=== PATIENT | female | born 1985 | race Caucasian/White ===

== ENCOUNTER 2023-09-23 15:18 | Emergency (ER) | payer OTHER, SELFPAY ==
[2023-09-23] VITALS (7 sets, daily range): BP systolic 109–158; BP diastolic 73–104
[2023-09-23 15:45] LABS: Urine Albumin 1+ (Neg - Trace); Urine Bilirubin 1+ (Negative); Urine Character Clear (Clear); Urine Color Yellow; Urine Glucose Negative (Negative); Urine Ketone 3+ (Negative); Urine Leukocyte Trace (Negative); Urine Nitrite Negative (Negative); Urine Occult Blood 2+ (Negative); Urine Specific Gravity 1.025 (<1.030); Urine Urobilinogen 1+ (Neg - 1+)
[2023-09-23 15:47] LABS: % Basophils 0.4 % (0-2); % Immature Granulocytes 0.4 % (0-0.5); % Lymphocytes 7.1 % (20.5-51.1); % Monocytes 8.3 % (1.7-9.3); % Neutrophils 83.8 % (42.2-75.2); Absolute Lymphocytes 0.5 10^3/uL (1.2-3.4); Absolute Monocytes 0.6 10^3/uL (0.1-0.6); Absolute Neutrophils 6.3 10^3/uL (1.4-6.5); Hematocrit 41.1 % (37.0-47.0); Hemoglobin 14.5 g/dL (12.0-16.0); Mean Corp Hgb Conc. 35.3 g/dL (33.0-37.0); Mean Corpuscular Hgb 32.8 pg (27.0-31.0); Mean Platelet Volume 9.9 fL (7.4-10.4); Nucleated Red Blood Cells % 0 %; Platelet Count 159 10^3/uL (130-400); Red Blood Cell Count 4.42 10^6/uL (4.20-5.40); Red Cell Dist. Width 12.8 % (11.5-14.5); White Blood Cell Count 7.5 10^3/uL (4.8-10.8)
[2023-09-23 15:54] LABS: Urine Bacteria Few (Negative); Urine Hyaline Cast 0-2 /LPF (0-2); Urine Red Blood Cell 0-2 /HPF (0-2)
[2023-09-23 15:57] LABS: Amphetamines Negative (Negative); Barbiturates Negative (Negative); Benzodiazepines Negative (Negative); Buprenorphine Negative (Negative); Cocaine Negative (Negative); Marijuana Negative (Negative); Methadone Negative (Negative); Methamphetamines Negative (Negative); Opiates Negative (Negative); Phencyclidine Negative (Negative); Tricyclic Antidepressants Negative (Negative)
[2023-09-23 16:22] LABS: ALT (SGPT) 124 U/L (0-35); AST (SGOT) 257 U/L (14-36); Albumin 5.7 g/dl (3.5-5.0); Alkaline Phosphatase 116 U/L (38-126); Blood Urea Nitrogen 8 mg/dl (7-17); Calcium 10.6 mg/dl (8.4-10.2); Carbon Dioxide 21 mmol/L (22-30); Chloride 92 mmol/L (98-107); Glucose 161 mg/dl (70-99); Lipase 275 U/L (23-300); Potassium 4.3 mmol/L (3.5-5.1); Sodium 136 mmol/L (135-145); Total Bilirubin 2.3 mg/dl (0.2-1.3); Total Protein 8.2 g/dl (6.3-8.2); eGFR > 60.00
[2023-09-23 16:26] LABS: Alcohol None Detected
--- NOTE | 2023-09-23 17:06 | ED.GENMED ---
History of Present Illness
General
Chief Complaint: Withdrawal Symptoms
Source: patient
Exam Limitations: none
Time Seen by Provider: 09/23/23 16:41
Nursing documentation reviewed up to this point in time: agreed with
History of Present Illness
History of Present Illness:
37 yr old female presents to the ED for evaluation. Pt reports she is an alcoholic and has drank for about 15 yrs heavier for the past 5-7 yrs. she reports she drinks both day and night. Her last drink was 8 PM last night however she woke up
vomiting around 3�4 AM. She did try to drink a beer around 9 AM but vomited that up and since then has vomited about 15 times. She does feel shaky and nauseous. She did see her family doctor 7 here for evaluation of withdrawal. She has never had
a withdrawal seizure. She has had the shakes in the past but never this bad. The most she stopped drinking in the past was for 1 day.
She does have a history of elevated LFTs and fatty liver.
Review of Systems
Review of Systems
Allergies reviewed?: Yes
All Other Systems: ROS reviewed and negative except as documented in HPI and ROS
Constitutional: Reports no symptoms; Denies fever, fatigue or chills
EENT: Reports no symptoms
Respiratory: Reports no symptoms
Cardiac: Reports no symptoms
ABD/GI: Reports nausea and vomiting; Denies abdominal pain
: Reports no symptoms
Musculoskeletal: Reports no symptoms
Skin: Reports no symptoms
Neurological: Reports other (shakes feels mildly tremulous )
Psychiatric: Denies suicidal
Phy Exam
General Physical Exam
General Presentation: no apparent distress
General age: appears stated age
General Skin: warm and dry
General Habitus: normal
General Mental: alert
General Hydration: dry mucous membranes
Cardiovascular Exam
Cardiovascular Exam: tachycardia
Pulmonary Exam
Pulmonary Exam: lungs clear and no respiratory distress
Gastrointestinal Exam
Gastrointestinal Exam: non tender and soft
Neurological Exam
Neurological Exam: alert and oriented x3
Musculoskeletal Exam
Musculoskeletal Exam: full ROM
Skin Exam
Skin Exam: normal color and warm/dry
Psychiatric Exam
Psychiatric Exam: normal mood/affect
Scores
Withdrawal Assessment of Alcohol
Withdrawal Assessment Completed?: Yes
Nausea and Vomiting: Mild nausea with no vomiting
Tactile Disturbances: None
Tremor: Moderate, with patient's arms extended
Auditory Disturbances: Not present
Paroxysmal Sweats: No sweat visible
Visual Disturbances: Not present
Anxiety: No anxiety, at ease
Headache, Fullness in Head: Not present
Agitation: Normal activity
Orientation and clouding of sensorium: Oriented and can do serial additions
Total CIWA Score: 5
Alcohol Withdrawal Medication Recommendation: Equal to MSAS Score 0-4. Monitor & re-assess q2hrs, NO MEDICATION NEEDED
Course
Orders/Labs/Results
Orders:
Orders
09/23/23 15:26
Electrocardiogram (*1) Urgent
Reason for Study: Chest Pain
EKG- Treatment ONCE
09/23/23 15:38
Alcohol Urgent
Complete Blood Count/With Diff Urgent
Comprehensive Metabolic Panel Urgent
Lipase Urgent
Magnesium Urgent
Comment: ADD ON
Urinalysis Reflex To Culture Urgent
Date Specimen was Collected: 09/23/23
Time Specimen was Collected: 15:28
Urine Drug Abuse Screen Urgent
Date Specimen was Collected: 09/23/23
Time Specimen was Collected: 15:28
Urine Microscopic Reflex Cult Urgent
09/23/23 17:04
0.9% Sodium Chloride 1000 ml [Nss] 1,000 ml IV BOLUS
09/23/23 17:05
Lorazepam [Ativan] 1 mg IV NOW STA
09/23/23 17:06
Ondansetron Injectable [Zofran] 4 mg IV NOW STA
09/23/23 17:07
Famotidine [Pepcid] 20 mg IV NOW STA
09/23/23 19:45
Electrocardiogram (*1) Urgent
Reason for Study: Chest Pain
EKG- Treatment ONCE
09/23/23 19:50
Troponin I Urgent
09/23/23 19:51
0.9% Sodium Chloride 1000 ml [Nss] 1,000 ml IV BOLUS
09/23/23 20:02
Lorazepam [Ativan] 0.5 mg IV NOW STA
09/23/23 20:08
Add On- LAB Urgent
Tests Added?: magnesium
09/23/23 21:18
Mag Hydrox/Al Hydrox/Simeth [Maalox] 30 ml Phenobarb/Hyoscy/Atropine/Scop [] 10 ml PO NOW
09/23/23 21:26
Mag Hydrox/Al Hydrox/Simeth [Maalox] 30 ml .ROUTE .STK-MED ONE
Phenobarb/Hyoscy/Atropine/Scop [] 10 ml .ROUTE .STK-MED ONE
Abnormal Lab Results
09/23/23
15:38
MCH 32.8 H pg
(27.0-31.0)
Absolute Lymphs (auto) 0.5 L 10^3/uL
(1.2-3.4)
Neutrophils % 83.8 H %
(42.2-75.2)
Lymphocytes % 7.1 L %
(20.5-51.1)
Chloride 92 L mmol/L
(98-107)
Carbon Dioxide 21 L mmol/L
(22-30)
Glucose 161 H mg/dl
(70-99)
Calcium 10.6 H mg/dl
(8.4-10.2)
Total Bilirubin 2.3 H mg/dl
(0.2-1.3)
AST 257 H U/L
(14-36)
ALT 124 H U/L
(0-35)
Albumin 5.7 H g/dl
(3.5-5.0)
Urine Ketones 3+ A
(Negative)
Ur Occult Blood Reflex 2+ A
(Negative)
Urine Bilirubin 1+ A
(Negative)
Leukocyte Esterase Rfl Trace A
(Negative)
Urine Bacteria (Reflex) Few A
(Negative)
Urine Albumin (Reflex) 1+ A
(Neg - Trace)
09/23/23 15:38
09/23/23 15:38
Vital Signs
Initial and Last Documented VS:
Initial Vital Signs
Temp Pulse Resp BP Pulse Ox
98.1 F 107 20 158/104 95
09/23/23 15:21 09/23/23 15:21 09/23/23 15:21 09/23/23 15:21 09/23/23 15:21
Last Documented Vital Signs
Temp Pulse Resp BP Pulse Ox
98.1 F 84 21 122/81 94
09/23/23 15:21 09/23/23 22:15 09/23/23 22:15 09/23/23 22:04 09/23/23 21:00
Smoking Pipe Maker consulted with Physician
Smoking Pipe Maker consulted with physician?: Yes
Name of Physician Consulted: Chelo
MDM/Problems Addressed
Differential Diagnosis Includes:
Not limited to alcohol withdrawal, dehydration
MDM/Problems Addressed:
Patient is a 37-year-old female who admits to being an alcoholic and started vomiting this morning around 3 AM. She tried to drink a beer later in the morning and has vomited since. She has vomited multiple times throughout the day and does
complain of some tremors. She has never had any prior withdrawal seizure or DTs. She was never hospitalized in the past for alcohol withdrawal or alcohol abuse. She presents awake alert mild tremors on exam and nausea. She was mildly
tachycardic. She does report she has known elevated liver functions and fatty liver. She did see a GI specialist her white count is normal her hemoglobin and platelets are stable.
Her UDS is negative. Patient was given Ativan and fluids here in the ER. She did have an episode here of midsternal chest pain when she does feel in her back. She has had this several times in the past and believes that her reflux. She was given
an acid. EKG with no acute concerning ischemic changes. NEg troponin.
1030: Pt has received a total of 2 L of fluid and drinking here in the ER feeling much better. She is not tremulous. She has been on the phone several times and has had multiple conversations with our [facility] practice representative.
She does not wish to go inpatient now. She would like to take care of certain logistics such as her job.
I did review with patient the importance of follow-up with family doctor for further evaluation of LFTs. EKG was reviewed minimally prolonged QTc patient takes no concerning meds.
As discussed ED physician will DC on Valium taper. I did have long conversation with the patient and mom that she cannot drink alcohol while taking Valium. She reports that mom and dad agree to closely watch her.
Pt feels well enough to go home.
Chronic conditions affecting care:
chronic alcohol abuse
*Pulse Oximetry
Patient hypoxic: no
*EKG
Interpreted by ED Provider?: Yes
Heart Rate: 95
Rate: normal
Rhythm: sinus
*Critical Care Note
Total Time (30-74mins, 75-104mins- exclusive of procedures): Not Applicable
Data Reviewed
Review of Other/Old Records Reveals: Radiology Studies (ct abd 2022 : no discrete liver lesion)
ED Attending Note
-
Portions of this chart may have been created with voice recognition software.� Occasional wrong word or��sound alike� substitutions may have occurred due to the inherent limitations of voice recognition software.
Discharge Plan
Departure
Patient Disposition: Home (Routine Discharge)
Date of Disposition: 09/23/23
Time of Disposition: 22:34
Patient with high blood pressure during this ER visit?: Yes
Condition: Fair
Covid-19: Not Applicable
Discharge Problem:
Alcohol abuse with withdrawal
Instructions: Anxiety, Adult (DC), Alcohol Withdrawal (DC), Alcohol Use Disorder (DC), BLOOD PRESSURE
Prescriptions:
New
diazepam [Valium] 10 mg tablet
See Rx Instructions .ROUTE .COMPLEX PRN (Reason: alcohol withdrawal) Qty: 10 0RF
Rx Instructions:
Day 1: 10 mg PO Q6 hrs Day 2: 10 mg PO Q8 hrs Day3: 10 mg PO Q12 hrs Day 4: 10 mg at night
Referrals:
Manolo Cantrell, DO [Family Provider] -
Activity Restrictions/Additional Instructions:
As discussed a prescription for Valium was sent to pharmacy to use ONLY DIRECTED FOR ALCOHOL WITHDRAWAL. DO NOT DRINK ALCOHOL TAKING THIS MEDICINE.
Stay well-hydrated. Follow-up with outpatient resources that you were provided. Follow-up with your family doctor the next 2 days for further evaluation of your symptoms. Follow-up with your family doctor for further evaluation of your abnormal
liver function tests.
Return if any worsening of symptoms if persistent or worsening tremors vomiting seizures or any further concerns
Interventions
Interventions:
*Risk Screen - Suicide Last Done: 09/23/23 15:21
*General Assessment Last Done: 09/23/23 15:21
*Neglect/Abuse Screening Last Done: 09/23/23 15:21
ED- Neurological Assessment Last Done: 09/23/23 17:23
ED-Psychological Assessment Last Done: 09/23/23 17:23
Discharge Date and Time
Print Language: OCCITAN
[2023-09-23] MEDS: NSS 1000 IV ×2 (17:17→19:51)
[2023-09-23] MEDS: PEPCID 20 MG IV (17:17)
[2023-09-23] MEDS: ZOFRAN 4 MG IV (17:18)
[2023-09-23] MEDS: ATIVAN 1 MG IV (17:19)
[2023-09-23] MEDS: ATIVAN 0.5 MG IV (20:07)
[2023-09-23 20:21] LABS: Troponin I < 0.012 ng/ml
[2023-09-23 20:54] LABS: Magnesium 1.6 mg/dl (1.6-2.3)
[2023-09-23] MEDS: MAALOX 40 PO (21:27)
== END 2023-09-23 22:49 | disposition home or self-care (01) ==
LOC: EMR 15:18
PROVIDERS: Emergency Medicine; Nurse Practitioner; EMERGENCY PHYSICIAN Emergency Medicine; FAMILY PHYSICIAN Internal Medicine
DX: F10.139 Alcohol abuse with withdrawal, unspecified (principal); R03.0 Elevated blood-pressure reading, without diagnosis of hypertension
CPT/HCPCS: 99284; 96374; 96375 ×2; 96376; 96361 ×2; 80053; 80306; 81003; 81015; 82077; 83690; 83735; 84484; 85025; 93005